=== PATIENT | female | born 1980 | race Caucasian/White ===

== ENCOUNTER 2019-05-31 18:35 | Emergency (ER) | payer OTHER ==
[~2019-05-31] VITALS: Ht 165.1 cm; Wt 86.3 kg
[2019-05-31 18:59] LABS: BILIRUBIN,URINE NEGATIVE (NEG); CLARITY,URINE CLEAR; COLOR,URINE YELLOW; NITRITE,URINE NEGATIVE (NEG); PROTEIN,URINE NEGATIVE (NEG-TRACE); UROBILINOGEN,URINE 0.2 mg/dL (0.2 mg/dL)
[2019-05-31 19:04] LABS: BACTERIA,URINE FEW /HPF (0-FEW); RBC,URINE OCC /HPF (0-2); SQUAMOUS EPITHELIAL CELL,UR MOD /LPF
--- NOTE | 2019-05-31 19:25 | PHYS DOC ---
Adult General Chief Complaint Chief Complaint: ABDOMINAL PAIN HPI HPI 39-year-old female presents to the emergency department with complaints of abdominal pain. Patient describes ongoing for 4 days, worse today. She states she's been unable to keep anything down since yesterday evening. She denies any diarrhea or fever, she has had some chills, nausea with vomiting. Patient is tender to palpation epigastric region, no history of pancreatitis. She describes the pain as , constant. Nothing makes worse, nothing makes her pain better. Review of Systems Review of Systems Constitutional: Denies fever or chills [] Respiratory: Denies cough or shortness of breath [] Cardiovascular: No additional information not addressed in HPI [] GI: + abdominal pain, nausea, vomiting, no bloody stools or diarrhea [] : Denies dysuria or hematuria [] Musculoskeletal: Denies back pain or joint pain [] Integument: Denies rash or skin lesions [] Neurologic: Denies headache, focal weakness or sensory changes [] All other systems were reviewed and found to be within normal limits, except as documented in this note. Current Medications Current Medications Current Medications Medications (Trade) Dose Ordered Sig/[facility] Start Time Stop Time Status Last Admin Dose Admin Iohexol (Omnipaque 300 Mg/ml) 75 ml 1X ONCE 05/31/19 20:15 05/31/19 20:16 DC 05/31/19 20:15 75 ML Morphine Sulfate (Morphine Sulfate) 4 mg 1X ONCE 05/31/19 20:15 05/31/19 20:16 DC 05/31/19 20:21 4 MG Ondansetron HCl (Zofran) 4 mg 1X ONCE 05/31/19 20:15 05/31/19 20:16 DC 05/31/19 20:21 4 MG Sodium Chloride 1,000 ml @ 1,000 mls/hr 1X ONCE 05/31/19 19:30 05/31/19 20:29 DC 05/31/19 20:03 1,000 MLS/HR Allergies Allergies Allergies Coded Allergies Type Severity Reaction Last Updated Verified haloperidol Allergy Intermediate 05/31/19 Yes Physical Exam Physical Exam Constitutional: Well developed, well nourished, mild pain on exam, non-toxic appearance. [] HENT: Normocephalic, atraumatic, bilateral external ears normal, oropharynx m oist, no oral exudates, nose normal. [] Eyes: PERRLA, EOMI, conjunctiva normal, no discharge. [] Cardiovascular:Heart rate regular rhythm, no murmur [] Lungs & Thorax: Bilateral breath sounds clear to auscultation [] Abdomen: Bowel sounds normal, soft, TTP epigastric region, no masses, no pulsatile masses. [] Skin: Warm, dry, no erythema, no rash. [] Extremities: No tenderness, no edema. [] Neurologic: Alert and oriented X 3, no focal deficits noted. [] Psychologic: Affect normal, judgement normal, mood normal. [] Current Patient Data Vital Signs Vital Signs Date Time Temp Pulse Resp B/P (MAP) Pulse Ox O2 Delivery O2 Flow Rate FiO2 05/31/19 20:51 17 96 Room Air 05/31/19 19:04 98.6 94 128/74 (92) 98.6 Lab Values Laboratory Tests Test 05/31/19 18:42 05/31/19 18:44 05/31/19 19:35 Urine Collection Type Unknown Urine Color Yellow Urine Clarity Clear Urine pH 6.0 Urine Specific [place] 1.010 Urine Protein Negative mg/dL (NEG-TRACE) Urine Glucose (UA) Negative mg/dL (NEG) Urine Ketones (Stick) 15 mg/dL (NEG) Urine Blood Negative (NEG) Urine Nitrite Negative (NEG) Urine Bilirubin Negative (NEG) Urine Urobilinogen Dipstick 0.2 mg/dL (0.2 mg/dL) Urine Leukocyte Esterase Trace (NEG) Urine RBC Occ /HPF (0-2) Urine WBC 1-4 /HPF (0-4) Urine Squamous Epithelial Cells Mod /LPF Urine Bacteria Few /HPF (0-FEW) Urine Mucus Slight /LPF POC Urine HCG, Qualitative Hcg negative (Negative) White Blood Count 7.8 x10^3/uL (4.0-11.0) Red Blood Count 4.29 x10^6/uL (3.50-5.40) Hemoglobin 13.3 g/dL (12.0-15.5) Hematocrit 38.9 % (36.0-47.0) Mean Corpuscular Volume 91 fL (79-100) Mean Corpuscular Hemoglobin 31 pg (25-35) Mean Corpuscular Hemoglobin Concent 34 g/dL (31-37) Red Cell Distribution Width 12.9 % (11.5-14.5) Platelet Count 294 x10^3/uL (140-400) Neutrophils (%) (Auto) 72 % (31-73) Lymphocytes (%) (Auto) 19 % (24-48) L Monocytes (%) (Auto) 7 % (0-9) Eosinophils (%) (Auto) 1 % (0-3) Basophils (%) (Auto) 1 % (0-3) Neutrophils # (Auto) 5.6 x10^3/uL (1.8-7.7) Lymphocytes # (Auto) 1.5 x10^3/uL (1.0-4.8) Monocytes # (Auto) 0.6 x10^3/uL (0.0-1.1) Eosinophils # (Auto) 0.1 x10^3/uL (0.0-0.7) Basophils # (Auto) 0.0 x10^3/uL (0.0-0.2) Sodium Level 142 mmol/L (136-145) Potassium Level 3.8 mmol/L (3.5-5.1) Chloride Level 103 mmol/L (98-107) Carbon Dioxide Level 27 mmol/L (21-32) Anion Gap 12 (6-14) Blood Urea Nitrogen 14 mg/dL (7-20) Creatinine 0.7 mg/dL (0.6-1.0) Estimated GFR (Cockcroft-Gault) 93.6 BUN/Creatinine Ratio 20 (6-20) Glucose Level 97 mg/dL (70-99) Lactic Acid Level 0.7 mmol/L (0.4-2.0) Calcium Level 9.2 mg/dL (8.5-10.1) Total Bilirubin 0.4 mg/dL (0.2-1.0) Aspartate Amino Transferase (AST) 27 U/L (15-37) Alanine Aminotransferase (ALT) 40 U/L (14-59) Alkaline Phosphatase 73 U/L (46-116) Total Protein 7.5 g/dL (6.4-8.2) Albumin 3.9 g/dL (3.4-5.0) Albumin/Globulin Ratio 1.1 (1.0-1.7) Lipase 104 U/L (73-393) Laboratory Tests 05/31/19 19:35 Laboratory Tests 05/31/19 19:35 EKG EKG [] Radiology/Procedures Radiology/Procedures [facility] [address] [place], [place] [id number] IMAGING REPORT Signed PATIENT: SONIA CAM ACCOUNT: [id number] : 1980 LOCATION: ER AGE: 39 SEX: F EXAM STATUS: REG ER ORD. PHYSICIAN: AUBREY ALFONSO MD REASON: abdominal pain, nausea with vomiting PROCEDURE: CT ABD PELV W/ IV CONTRST ONLY EXAM: CT Abdomen and Pelvis with IV contrast CLINICAL HISTORY: Nausea, vomiting, abdominal pain. COMPARISON: none TECHNIQUE: Helical CT of the abdomen and pelvis was performed following the administration of intravenous contrast. Axial, coronal and sagittal reformatted images were generated. PQRS compliance statement - One or more of the following individualized dose reduction techniques were utilized for this study: 1. Automated exposure control 2. Adjustment of the mA and/or kV according to patient size 3. Use of iterative reconstruction technique FINDINGS: Lower chest: Dependent opacities in the lower lobes likely atelectasis. Abdomen and Pelvis: No focal liver lesion. There is been a cholecystectomy. No biliary duct dilatation. Pancreas is unremarkable. Spleen is normal in appearance. Left adrenal nodule measuring 1.7 cm is indeterminate. Right adrenal gland is unremarkable. Symmetric nephrograms. No focal renal lesion. No hydronephrosis. No hydroureter. Bladder is unremarkable. Uterus and adnexa are grossly unremarkable. Moderate colonic stool content is seen. Appendix is now seen likely appendectomy. Prominent fat is seen about the rectum with mild associated infiltration. Although this may be related to inflammatory process, underlying rectal mass would have similar appearance. Bones: No aggressive osseous lesion is seen. Leftward curvature lumbar spine, apex L2. IMPRESSION: 1. No bowel obstruction. 2. Mild infiltration is seen about the rectum with associated prominent fat. This is nonspecific and although may be seen with inflammatory process, underlying rectal mass may result in similar appearance. This can be further assessed by colonoscopy as clinically indicated. Electronically signed by: Frantz Catherine MD (05/31/2019 9:24 PM) [id number] DICTATED and SIGNED BY: FRANTZ CATHERINE MD DATE: 05/31/192123 [] Course & Med Decision Making Course & Med Decision Making Pertinent Labs and Imaging studies reviewed. (See chart for details) [] 39-year-old female presents to the emergency department with complaints of abdominal pain. Patient describes ongoing for 4 days, worse today. She states she's been unable to keep anything down since yesterday evening. She denies any diarrhea or fever, she has had some chills, nausea with vomiting. Patient is tender to palpation epigastric region, no history of pancreatitis. She describes the pain as , constant. Nothing makes worse, nothing makes her pain better. Labs/Imaging reviewed CBC, CMP, lactic acid within normal limits CT the abdomen and pelvis reveals no evidence of acute intra-abdominal process for patient's pain, no evidence of obstructive process identified. PO Challenge in the emergency department will plan discharge home Dragon Disclaimer Dragvalery Disclaimer This electronic medical record was generated, in whole or in part, using a voice recognition dictation system. Departure Departure Impression: Primary Impression: Abdominal pain Additional Impression: Nausea & vomiting Disposition: 05 TRANSFER OTHER Condition: STABLE Referrals: NO PCP (PCP) Patient Instructions: Abdominal Pain (Nonspecific) Additional Instructions: Recommend follow up with PCP 3 - 5 days Return to the ER with worsening symptoms, intractable pain, fever, altered mental status Tylenol/Motrin as needed for pain Take medications as prescribed CT without findings to cause abdominal pain, no obstructive process identified Scripts Dicyclomine Hcl (DICYCLOMINE HCL) 10 Mg Capsule 1 CAP PO TID for 5 Days, #15 CAP 0 Refills Prov: AUBREY ALFONSO MD 05/31/19 Ondansetron Hcl (ZOFRAN) 4 Mg Tablet 1 TAB PO PRN Q6-8HRS for nausea, #12 TAB Prov: AUBREY ALFONSO MD 05/31/19 Problem Qualifiers Primary Impression: Abdominal pain Abdominal location: epigastric Qualified Codes: R10.13 - Epigastric pain Additional Impression: Nausea & vomiting Vomiting type: unspecified Vomiting Intractability: unspecified Qualified Codes: R11.2 - Nausea with vomiting, unspecified AUBREY ALFONSO MD May 31, 2019 19:25
[2019-05-31] MEDS ORDERED: IV NORMAL SALINE 1000ML BAG 1,000 ML IV ONE (19:30)
[2019-05-31 19:44] LABS: BASO % 1 % (0-3); EOS # 0.1 x10^3/uL (0.0-0.7); EOS % 1 % (0-3); HEMATOCRIT 38.9 % (36.0-47.0); HEMOGLOBIN 13.3 g/dL (12.0-15.5); LYMPH # 1.5 x10^3/uL (1.0-4.8); LYMPH % 19 % (24-48); MEAN CORPUSCULAR HEMOGLOBIN 31 pg (25-35); MEAN CORPUSCULAR HGB CONC 34 g/dL (31-37); MEAN CORPUSCULAR VOLUME 91 fL (79-100); MONO # 0.6 x10^3/uL (0.0-1.1); MONO % 7 % (0-9); NEUT # 5.6 x10^3/uL (1.8-7.7); NEUT % 72 % (31-73); PLATELET COUNT 294 x10^3/uL (140-400); RED BLOOD COUNT 4.29 x10^6/uL (3.50-5.40); RED CELL DISTRIBUTION WIDTH 12.9 % (11.5-14.5); WHITE BLOOD COUNT 7.8 x10^3/uL (4.0-11.0)
[2019-05-31 19:50] LABS: CALCIUM 9.2 mg/dL (8.5-10.1); CREATININE 0.7 mg/dL (0.6-1.0); GFR 93.6; POTASSIUM 3.8 mmol/L (3.5-5.1)
[2019-05-31 20:05] LABS: ALBUMIN 3.9 g/dL (3.4-5.0); ALBUMIN/GLOBULIN RATIO 1.1 (1.0-1.7); TOTAL BILIRUBIN 0.4 mg/dL (0.2-1.0); TOTAL PROTEIN 7.5 g/dL (6.4-8.2)
[2019-05-31] MEDS ORDERED: IOHEXOL 300 MG/ML 100ML VIAL. IV ONE (20:15)
[2019-05-31] MEDS ORDERED: ONDANSETRON PF 4 MG/2 ML VIAL. IVP ONE (20:15)
[2019-05-31] MEDS ORDERED: MORPHINE SULFATE 4 MG/ML VIAL. IV ONE (20:15)
--- NOTE | 2019-05-31 21:26 | RAD ---
EXAM: CT Abdomen and Pelvis with IV contrast CLINICAL HISTORY: Nausea, vomiting, abdominal pain. COMPARISON: none TECHNIQUE: Helical CT of the abdomen and pelvis was performed following the administration of intravenous contrast. Axial, coronal and sagittal reformatted images were generated. PQRS compliance statement - One or more of the following individualized dose reduction techniques were utilized for this study: 1. Automated exposure control 2. Adjustment of the mA and/or kV according to patient size 3. Use of iterative reconstruction technique FINDINGS: Lower chest: Dependent opacities in the lower lobes likely atelectasis. Abdomen and Pelvis: No focal liver lesion. There is been a cholecystectomy. No biliary duct dilatation. Pancreas is unremarkable. Spleen is normal in appearance. Left adrenal nodule measuring 1.7 cm is indeterminate. Right adrenal gland is unremarkable. Symmetric nephrograms. No focal renal lesion. No hydronephrosis. No hydroureter. Bladder is unremarkable. Uterus and adnexa are grossly unremarkable. Moderate colonic stool content is seen. Appendix is now seen likely appendectomy. Prominent fat is seen about the rectum with mild associated infiltration. Although this may be related to inflammatory process, underlying rectal mass would have similar appearance. Bones: No aggressive osseous lesion is seen. Leftward curvature lumbar spine, apex L2. IMPRESSION: 1. No bowel obstruction. 2. Mild infiltration is seen about the rectum with associated prominent fat. This is nonspecific and although may be seen with inflammatory process, underlying rectal mass may result in similar appearance. This can be further assessed by colonoscopy as clinically indicated. Electronically signed by: Frantz Catherine MD (05/31/2019 9:24 PM) [id number]
[2019-05-31] MEDS ORDERED: ONDA4TAB7 PO (21:34)
[2019-05-31] MEDS ORDERED: DICY10CA3 PO (21:34)
[2019-05-31 21:52] VITALS: BP 133/73
--- NOTE | 2019-06-01 04:50 | EKG ---
[facility] [address] [place] [address] Test Date: 2019-05-31 Test Time: 19:52:15 Pat Name: SONIA CAM Department: Room: Gender: F Manager Drug Safety: : 1980 Requested By: AUBREY ALFONSO Order Number: [id number] Reading MD: Measurements Intervals [place] Rate: 88 P: 35 DC: 190 QRS: 41 QRSD: 82 T: 24 QT: 330 QTc: 402 Interpretive Statements SINUS RHYTHM LEFT ATRIAL ABNORMALITY INCOMPLETE RIGHT BUNDLE BRANCH BLOCK RVH WITH REPOLARIZATION ABNORMALITY ABNORMAL ECG RI6.01 No previous ECG available for comparison
== END 2019-05-31 21:55 | disposition home or self-care (01) ==
LOC: EEVIPCON 18:35 → ER 18:35
DX: R10.13 Epigastric pain (principal); R11.2 Nausea with vomiting, unspecified; Z88.8 Allergy status to other drugs, medicaments and biological substances
CPT/HCPCS: 36415; 74177; 80053; 81001; 81025; 83605; 83690; 85025; 87086; 93005; 96361; 96374; 96375; 99285; J2270; J2405; J7030; Q9967